=== PATIENT | female | born 1960 | race Caucasian/White ===

== ENCOUNTER → 2021-09-08 | Day surgery (SDC) | payer OTHER ==
[~2021-09-08] MED LIST: ABILIFY15 MG PO; ADDERALL 20 MG20 MG PO; CELEBREX 200 M200 MG PO; CRESTOR40 MG PO; LOSARTAN POTAS100 MG PO; NORCO5 PO; OMEPRAZOLE 20 M20 M1 PO; WELLBUTRIN SR150 MG PO; ZOLOFT100 MG PO
[2021-09-08 06:53] LABS: HEMATOCRIT 38.8 % (37.0-47.0); HEMOGLOBIN 12.9 gm/dL (12.0-15.0); MCHC 33.3 g/dL (28.0-37.0); MCV 81.3 fL (80.0-100.0); RBC 4.78 mil/uL (4.20-5.00); RDW-CV 14.9 % (10.5-14.5); WBC 6.8 thou/uL (4.0-11.0)
[2021-09-08 07:01] LABS: CREATININE 0.8 mg/dL (0.6-1.3); POTASSIUM 4.4 mmol/L (3.5-5.1)
--- NOTE | 2021-09-08 10:38 | EKG ---
[place] [address] ELECTROCARDIOGRAM REPORT Name: SHEYARLENEOMAIRA Bernal Room: [facility]#: [id number] Admission: 09/08/21 Attend Phys: Catrachito Kuo, Discharge: Date of : 58 Date of Service: 09/08/21 0701 Report #: [id number] THIS REPORT FOR: //name// [facility] Test Date: 2021-09-08 Test Time: 07:01:33 Pat Name: OMAIRA DAVIS Department: Room: Gender: F Pin Cleaner: TXANGIE : 1960 Requested By: Catrachito Kuo Order Number: [id number] Joelle MD: Onesimo Bertrand Measurements Intervals [place] Rate: 81 P: 44 UT: 144 QRS: 12 QRSD: 90 T: 16 QT: 369 QTc: 429 Interpretive Statements Sinus rhythm Low voltage, precordial leads Borderline T abnormalities, anterior leads Baseline wander in lead(s) V3 No previous ECG available for comparison Electronically Signed On 09-08-2021 10:38:34 [employer] by Onesimo Bertrand [email or web address] <ELECTRONICALLY SIGNED> By: Onesimo Bertrand MD, FACC 09/08/21 1038 0 0 Onesimo Bertrand MD, FAC /EPI
--- NOTE | 2021-09-12 20:30 | OP ---
[address] [address] OPERATIVE REPORT Name: OMAIRA DAVIS Room: [facility]#: [id number] Admission: 09/08/21 Attend Phys: Catrachito Kuo II Discharge: Date of : 58 Report #: [id number] THIS REPORT FOR: cc: Hanane Martinez Anna S. DO Greiner, Robert F. II DO ~ DATE OF SURGERY: 09/08/2021 PREOPERATIVE DIAGNOSIS: Left de Quervain's tenosynovitis. POSTOPERATIVE DIAGNOSIS: Left de Quervain's tenosynovitis. PROCEDURE: Left de Quervain's release. SURGEON: Catrachito Kuo II, DO FLOWER STRIPPER: None. ANESTHESIA: LMA. ESTIMATED BLOOD LOSS: Minimal. ANTIBIOTICS: Per operative report. COMPLICATIONS: None. CONDITION: The patient stable to recovery room. DESCRIPTION OF PROCEDURE: The patient was taken to the operative suite, placed supine on the operating table, given appropriate anesthesia. The patient's left arm was sterilely prepped and draped with well-padded tourniquet applied to the upper arm. Surgery began by a transverse incision over the first dorsal compartment of the left wrist. This was carried down to subcutaneous tissues. The first dorsal compartment was released in both proximal directions to release the tendons underneath. He did have significant synovitis, which was removed. Irrigation was then performed. The tendons moved freely at the completion of the case. The incision was then closed with 2-0 Vicryl and a running Monocryl stitch. Dermabond and sterile dressing applied. The patient was transported to recovery in stable condition. Counts were correct throughout the procedure. <ELECTRONICALLY SIGNED> By: Catrachito Kuo II, DO 09/12/21 2030 [id number] Kuo II DO /nt
== END | disposition home or self-care (01) ==
LOC: M.SUR 06:21
PROVIDERS: ATTEND Orthopaedic Surgery
DX: M65.4 Radial styloid tenosynovitis [de Quervain] (principal); Z20.822 Contact with and (suspected) exposure to COVID-19; Z79.899 Other long term (current) drug therapy